=== PATIENT | male | born 1960 | race Caucasian/White ===

== ENCOUNTER 2021-07-19 06:42 | Inpatient (IN) | payer MEDICARE, MEDICAID ==
[~2021-07-19] VITALS: Ht 180.3 cm; Wt 112.0 kg
[~2021-07-19 06:42] MED LIST: ALBU108A5 IN; ATOR20TA50 PO; CHOL500023 PO; FLUT50SP EACHNOSTRI; GABA300C10 PO; HYDR-4795 PO; LOSA-69 PO; OMEP20TA PO; ZOLP10TA6 PO
[2021-07-19] MEDS ORDERED: IODIXANOL 320MG/ML 100ML BTL IV ONE ×2 (07:26→09:37)
[2021-07-19] MEDS ORDERED: LIDOCAINE 2%HCL (LOCAL ANESTH.) INJ 20ML MDV ONE ×2 (07:27→08:23)
[2021-07-19] MEDS ORDERED: fentaNYL CITRATE 100 MCG/2 ML VL ONE (07:46)
[2021-07-19] MEDS ORDERED: ANGIOMAX 250 MG VIAL IV ONE ×2 (07:46→08:52)
[2021-07-19] MEDS ORDERED: SODIUM CHL 0.9% 50 ML ONE ×2 (07:47→08:52)
[2021-07-19] MEDS ORDERED: MIDAZOLAM HCL 2MG/2ML 2ml VIAL (1mg/ml) ONE (07:47)
[2021-07-19] MEDS ORDERED: HYDROmorphone HCL 2 MG/ML VL ONE (08:47)
[2021-07-19] MEDS ORDERED: ASPirin 81 mg TAB ONE (09:53)
[2021-07-19] MEDS ORDERED: CLOPIDOGREL 300 MG TAB ONE (09:53)
[2021-07-19] MEDS ORDERED: HYDROcodone-ACET 7.5/325MG TAB PO PRN (10:45)
[2021-07-19] MEDS ORDERED: ALBUTEROL SULF HFA 90MCG INH 200DOSE IN PRN (10:45)
[2021-07-19] MEDS ORDERED: ONDANSETRON HCL 4 MG/2 ML VIAL IV PRN (10:45)
[2021-07-19] MEDS ORDERED: ACETAMINOPHEN 500 MG TAB PO PRN (10:45)
[2021-07-19] MEDS ORDERED: NITROGLYCERIN 0.4 MG SL TAB SL PRN (10:45)
[2021-07-19] MEDS ORDERED: MORPHINE SULFATE INJECTION 2 MG/ML SYRG IV PRN (10:45)
[2021-07-19] MEDS ORDERED: PATIENTS OWN MEDICATION (Zolpidem Tartrate 1 TAB) PO PRN (10:45)
[2021-07-19] MEDS ORDERED: ZOLPIDEM TARTRATE 5 MG TAB PO PRN (11:00)
[2021-07-19] MEDS ORDERED: ALBUTEROL SULF 2.5 MG/0.5ML(0.5%) NEB SOLN NEB PRN (11:30)
[2021-07-19] MEDS ORDERED: ATORVASTATIN 20 MG TAB PO SCH (18:00)
[2021-07-20] MEDS ORDERED: PATIENTS OWN MEDICATION (Omeprazole (Gnp Omeprazole) 1 TAB) PO SCH (07:00)
[2021-07-20] MEDS ORDERED: CHOLECALCIFEROL (VITD3) 2,000 UNIT CAP/TAB PO SCH (07:00)
[2021-07-20] MEDS ORDERED: PATIENTS OWN MEDICATION (Cholecalciferol (Vitamin D3) 5,000 UNIT) PO SCH (07:00)
[2021-07-20] MEDS ORDERED: GABAPENTIN 300 MG CAP PO SCH (07:00)
[2021-07-20] MEDS ORDERED: PANTOPRAZOLE 40 MG TAB PO SCH (07:00)
[2021-07-20] MEDS ORDERED: CHOLECALCIFEROL (VITD3) 1,000UNIT=25mCg TAB PO SCH (07:00)
[2021-07-20] MEDS ORDERED: LOSARTAN POTASSIUM 50 MG TAB PO SCH (07:00)
[2021-07-20] MEDS ORDERED: FLUTICASONE PROP NASAL SPR 0.05 % (50MCG) 16GM EACHNOSTRI SCH (07:00)
[2021-07-20] MEDS ORDERED: ASPirin-EC 81 mg tab PO SCH (10:00)
[2021-07-20] MEDS ORDERED: CLOPIDOGREL BISULFATE 75 MG TAB PO SCH (10:00)
== END 2021-07-19 16:59 | disposition home or self-care (01) | DRG 249 ==
LOC: CATH 06:42 → TELE 10:35
PROVIDERS: ADMIT Internal Medicine Cardiovascular Disease; ATTEND Internal Medicine Cardiovascular Disease
PROC: 02703DZ Dilation of Coronary Artery, One Artery with Intraluminal Device, Percutaneous Approach (ICD-10-PCS; principal; 2021-07-19)
PROC: B211YZZ Fluoroscopy of Multiple Coronary Arteries using Other Contrast (ICD-10-PCS; 2021-07-19)
PROC: B215YZZ Fluoroscopy of Left Heart using Other Contrast (ICD-10-PCS; 2021-07-19)
PROC: 4A033BC Measurement of Arterial Pressure, Coronary, Percutaneous Approach (ICD-10-PCS; 2021-07-19)
PROC: 4A023N8 Measurement of Cardiac Sampling and Pressure, Bilateral, Percutaneous Approach (ICD-10-PCS; 2021-07-19)
PROC: 3E073GC Introduction of Other Therapeutic Substance into Coronary Artery, Percutaneous Approach (ICD-10-PCS; 2021-07-19)
DX: I25.10 Atherosclerotic heart disease of native coronary artery without angina pectoris (principal); R07.89 Other chest pain; E78.5 Hyperlipidemia, unspecified; E66.9 Obesity, unspecified; E11.9 Type 2 diabetes mellitus without complications; H91.90 Unspecified hearing loss, unspecified ear; M54.9 Dorsalgia, unspecified; R03.0 Elevated blood-pressure reading, without diagnosis of hypertension; Z20.822 Contact with and (suspected) exposure to COVID-19; Z68.34 Body mass index [BMI] 34.0-34.9, adult
CPT/HCPCS: 71045; 92928; 93460; 93571; 99152; 99153; C1751; G0378; J2250; Q9967